=== PATIENT | male | born 1970 | race Caucasian/White ===

== ENCOUNTER 2018-06-11 12:30 | Emergency (ER) | payer BC, OTHER ==
[~2018-06-11] VITALS: Ht 180.3 cm; Wt 95.3 kg
--- NOTE | ~2018-06-11 | EKG ---
[address] [address] ELECTROCARDIOGRAM REPORT Name: YOEL CHILDRESS Room #: DEP Joie#: [id number] Admission: 06/11/18 Attend Phys: Discharge: 06/11/18 Date of : 68 Report #: [id number] THIS REPORT FOR: //name// [facility] ED Test Date: 2018-06-11 Test Time: 12:40:56 Pat Name: YOEL CHILDRESS Department: Room: Gender: [employer] Supervisor: JANIS : 1970 Requested By: Conchita Sierra Order Number: [id number] MD: Marek Brannon Measurements Intervals [place] Rate: 91 P: 48 [place]: 149 QRS: -9 QRSD: 102 T: 9 QT: 373 QTc: 459 Interpretive Statements Sinus rhythm No previous ECG available for comparison Electronically Signed On 06-12-2018 11:17:45 AVAYA ENGINEER by Marek Brannon [email or web address] <ELECTRONICALLY SIGNED> By: Marek Brannon MD 06/12/18 1117 1240 1240 Marek Brannon MD /AIXA
[2018-06-11 14:53] LABS: BASOPHILS 0.4 % (0.0-2.0); EOSINOPHILS 0.2 % (0.0-3.0); HEMATOCRIT 44.7 % (42.0-52.0); HEMOGLOBIN 15.5 gm/dL (14.0-18.0); LYMPHOCYTES 8.8 % (24.0-44.0); MCHC 34.6 g/dL (28.0-37.0); MCV 89.5 fL (80.0-100.0); MONOCYTES 4.2 % (1.0-8.0); PLATELET COUNT 205 thou/uL (150-400); POLYS 86.4 % (36.0-66.0); RDW 13.3 % (10.5-14.5); WBC 13.9 thou/uL (4.0-11.0)
[2018-06-11 15:08] LABS: CALCIUM 9.1 mg/dL (8.5-10.1); CREATININE 0.7 mg/dL (0.7-1.3); POTASSIUM 3.7 mmol/L (3.5-5.1)
[2018-06-11 15:14] LABS: ALBUMIN 4.2 g/dL (3.4-5.0); TOTAL BILIRUBIN 0.3 mg/dL (<0.1-1.0); TOTAL PROTEIN 7.3 g/dL (6.4-8.2)
[2018-06-11 15:50] LABS: URINE BILIRUBIN NEGATIVE (Negative); URINE BLOOD NEGATIVE (Negative); URINE CLARITY CLEAR; URINE COLOR YELLOW; URINE GLUCOSE-RANDOM* NEGATIVE (Negative); URINE KETONES NEGATIVE (Negative); URINE LEUKOCYTES NEGATIVE (Negative); URINE NITRITE NEGATIVE (Negative); URINE PROTEIN (DIPSTICK) NEGATIVE (Negative); URINE SPECIFIC GRAVITY >= 1.030 (1.005-1.035); URINE UROBILINOGEN 0.2 E.U./dl (0.2-1.0)
[2018-06-11] MEDS ORDERED: PRILOSEC 20 MG20 MG PO (17:17)
[2018-06-11 17:20] VITALS: BP 189/113
== END 2018-06-11 17:35 | disposition home or self-care (01) ==
LOC: ER 12:30
PROVIDERS: Physician Assistant
DX: K21.9 Gastro-esophageal reflux disease without esophagitis (principal)

== ENCOUNTER → 2019-09-13 | Outpatient (CLI) | payer BC, OTHER ==
[~2019-09-13] VITALS: Ht 180.3 cm; Wt 95.3 kg
[~2019-09-13] MED LIST: AMLODIPINE BESY10 MG PO; AVAPRO300 MG PO; GABAPENTIN 100100 MG PO; NABUMETONE 500500 M1 PO; PRILOSEC 20 MG20 MG PO; TRAMADOL 50 MG50 MG PO
--- NOTE | ~2019-09-13 | HPC ---
[facility] [address] [place] [address] PAIN MANAGEMENT CONSULTATION Name: YOEL CHILDRESS MICHELLE Room #: REG DANIS Villegas.#: [id number] Admission: 09/13/19 Attend Phys: Brennon Staples MD Discharge: Date of : 68 Report #: [id number] THIS REPORT FOR: cc: [facility] - No family physician/PCP [facility] - No family physician/PCP Brennon Staples MD ~ CC: [facility] physician/PCP Brennon Rubio MD DATE OF SERVICE: 09/13/2019 CHIEF COMPLAINT: Cervical pain with radiation into the left arm. 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 Beginning in June, began experiencing pain in his low back. There was fairly significant with radiation into the leg and numbness that responded to exercise and time and has almost gone away. Around the same time, he began experiencing symptoms consistent with cervical radiculopathy. He describes the pain as a 7/10 in the back of his neck and upper back that radiates down into the left arm following the C6-C7 distribution. Pain is rhythmic throbbing, sharp and stabbing. He took a Dosepak and got quite a bit of relief but the relief only lasted about a week. Pain is worse when he is driving, when he reaches ____ [place]. When he is sitting in a chair with his arm relaxed, pain drops fairly significantly. MEDICATIONS: Amlodipine, nabumetone, tramadol, Avapro. ALLERGIES: None. PAST MEDICAL HISTORY: Remarkable for hypertension. SOCIAL HISTORY: He is , but he is a single supervisor special education at [employer]. Denies use of tobacco, drinks alcohol frequently during the week, scoring his number of drinks per week at 10. REVIEW OF SYSTEMS: Positive for fatigue and weakness related to pain, otherwise negative. PHYSICAL EXAMINATION: GENERAL: Pleasant 49-year-old gentleman. Alert and oriented. VITAL SIGNS: Blood pressure 155/95, heart rate 99, respirations 14, O2 sat 100, pain intensity is 7/10. Moves independently and ambulates without antalgic features. HEENT: Normal. [facility] [address] [place] [address] PAIN MANAGEMENT CONSULTATION Name: YOEL CHILDRESS MICHELLE Room #: REG [facility].#: [id number] Admission: 09/13/19 Attend Phys: Brennon Staples MD Discharge: Date of : 68 Report #: [id number] NECK: Supple. Some tenderness in the left neck and this reproduces some radicular symptoms when the neck is rotated to the leftward lateral tilt. CHEST: Clear. CARDIAC: Rhythm regular. No murmur heard. NEUROLOGIC: The upper and lower extremities are normal with no evidence of hyperreflexia to suggest cord impingement. IMPRESSION: Cervical radiculopathy. RECOMMENDATIONS: Cervical epidural injection under fluoroscopic guidance. Because of the ongoing COVID virus concerns and the possibility of a large steroid injection may temporarily reduce natural adrenocorticoid release important in ____ an initial immune response, I have told him that we will wait 1 week and reevaluate the timing of the injection. Gabapentin 100 mg 1-3 tablets at bedtime were ordered to see if we can get some nocturnal pain relief since he is not sleeping well. Followup visit planned in 1 week for possible cervical epidural injection. By: 1350 1432 Brennon Staples MD /nt
[2019-09-13 10:45] VITALS: BP 155/95
--- NOTE | 2019-09-13 11:03 | NUR ---
Pain Clinic Assessment: 1. History of Osteoarthritis: BACK NECK History of Rheumatoid Arthritis: Not Applicable 2. Height: 5 ft. 11 in. 180.3 cm. Weight: 210.0 lb. oz. 95.256 kg. Patient's BMI: 29.3 3. Vital Signs: BP: 155/95 Pulse: 99 Resp: 14 Temp: 02 Sat: 100 ECG Mon: 4. Pain Intensity: 7 5. Fall Risk: Dizziness: N Needs help standing or walking: N Fallen in the last 3 months: N Fall risk comments: 6. Patient on Blood Thinner: None 7. History of Hypertension: Y 8. Opioid Therapy greater than 6 weeks: N Opiate Contract Signed: 9. Risk Assessment Tool Provided: LOW RISK 0/3 10. Functional Assessment Tool: 11. Recreational Drug Use: Never Drug Type: Tobacco Use: Never Smoker Tobacco Type: Amount or Packs/day: How Many Years: Alcohol Use: Yes Frequency: Weekly Quant: 10
== END ==
LOC: PAIN 06:49
DX: M54.12 Radiculopathy, cervical region (principal); I10 Essential (primary) hypertension; Z79.899 Other long term (current) drug therapy

== ENCOUNTER → 2019-09-20 | Outpatient (CLI) | payer BC, OTHER ==
[~2019-09-20] VITALS: Ht 180.3 cm; Wt 95.0 kg
[~2019-09-20] MED LIST changes: +OMEPRAZOLE 20 M20 M1 PO
[2019-09-20 09:41] VITALS: BP 143/96
--- NOTE | 2019-09-20 09:46 | NUR ---
Pain Clinic Assessment: 1. History of Osteoarthritis: BACK NECK History of Rheumatoid Arthritis: Not Applicable 2. Height: 5 ft. 11 in. 180.3 cm. Weight: 209.4 lb. oz. 94.983 kg. Patient's BMI: 29.2 3. Vital Signs: BP: 143/96 Pulse: 98 Resp: 16 Temp: 02 Sat: 98 ECG Mon: 4. Pain Intensity: 5-7 5. Fall Risk: Dizziness: N Needs help standing or walking: N Fallen in the last 3 months: N Fall risk comments: 6. Patient on Blood Thinner: None 7. History of Hypertension: Y 8. Opioid Therapy greater than 6 weeks: N Opiate Contract Signed: 9. Risk Assessment Tool Provided: LOW RISK 0/3 10. Functional Assessment Tool: 11. Recreational Drug Use: Never Drug Type: Tobacco Use: Never Smoker Tobacco Type: Amount or Packs/day: How Many Years: Alcohol Use: Yes Frequency: Quant:
--- NOTE | 2019-09-20 12:09 | HPC ---
[facility] [address] [place] [address] [place] [address] PAIN MANAGEMENT CONSULTATION Name: YOEL CHILDRESS MICHELLE Room #: REG DANIS VillegasMoisés#: [id number] Admission: 09/20/19 Attend Phys: Brennon Staples MD Discharge: Date of : 68 Report #: [id number] THIS REPORT FOR: cc: [facility] - No family physician/PCP [facility] - No family physician/PCP Brennon Staples MD ~ CC: [facility] physician/PCP Brennon Rubio MD DATE OF SERVICE: 09/20/2019 PROCEDURE NOTE: Cervical epidural steroid injection under fluoroscopic guidance. The patient returns to pain clinic today for cervical epidural injection. His pain remains unchanged from one week ago when I saw him initially in consultation. Pain varies between a 5 and an 8. He has weakness and numbness on the left consistent with cervical radiculopathy. I was able to review his MRI today showing the C6-C7 disk injury, which is creating his symptoms. We discussed the procedure in detail including risks and benefits and he is anxious to proceed. Chart was reviewed in detail. He is on no blood thinning medications. No allergies. DESCRIPTION OF PROCEDURE: After informed consent, he was taken to the fluoroscopic suite, placed prone, skin prepped with ChloraPrep. Skin anesthetized over the C7-T1 interspace. A 20-gauge Tuohy epidural needle advanced on the first attempt into the epidural space with loss of resistance. Omnipaque 1 mL was injected with excellent spread identified spreading cephalad and caudad. It was then followed by 3 mL of 0.5% lidocaine mixed with 80 mg of triamcinolone. He tolerated the procedure well. There were no complications. He was taken to recovery room for observation and discharged. We will see him back in the pain clinic on an as-needed basis or in 1 month for repeat injection if pain symptoms are not improved dramatically as we hope. No medications were ordered at this time. <ELECTRONICALLY SIGNED> By: Brennon Staples MD 09/20/19 1209 1017 1051 Brennon Staples MD /nt
== END | disposition home or self-care (01) ==
LOC: PAIN 06:48
DX: M54.12 Radiculopathy, cervical region (principal); G89.29 Other chronic pain; K21.9 Gastro-esophageal reflux disease without esophagitis

== ENCOUNTER → 2019-12-06 | Outpatient (CLI) | payer BC, OTHER ==
[~2019-12-06] VITALS: Ht 180.3 cm; Wt 96.7 kg
[2019-12-06 14:04] VITALS: BP 164/100
--- NOTE | 2019-12-06 14:07 | NUR ---
Pain Clinic Assessment: 1. History of Osteoarthritis: BACK NECK History of Rheumatoid Arthritis: Not Applicable 2. Height: 5 ft. 11 in. 180.3 cm. Weight: 213.2 lb. oz. 96.707 kg. Patient's BMI: 29.7 3. Vital Signs: BP: 164/100 Pulse: 91 Resp: 18 Temp: 02 Sat: 97 ECG Mon: 4. Pain Intensity: 5-6 5. Fall Risk: Dizziness: N Needs help standing or walking: N Fallen in the last 3 months: N Fall risk comments: 6. Patient on Blood Thinner: None 7. History of Hypertension: Y 8. Opioid Therapy greater than 6 weeks: N Opiate Contract Signed: 9. Risk Assessment Tool Provided: LOW RISK 0/3 10. Functional Assessment Tool: 35/70 11. Recreational Drug Use: Never Drug Type: Tobacco Use: Never Smoker Tobacco Type: Amount or Packs/day: How Many Years: Alcohol Use: Yes Frequency: Daily Quant: 1-2
--- NOTE | 2019-12-14 15:51 | HPC ---
[facility] [place] [address] PAIN MANAGEMENT CONSULTATION Name: YOEL CHILDRESS MICHELLE Room #: REG DANIS Villegas.#: [id number] Admission: 12/06/19 Attend Phys: Brennon Staples MD Discharge: Date of : 68 Report #: [id number] THIS REPORT FOR: cc: [facility] - No family physician/PCP [facility] - No family physician/PCP Brennon Staples MD ~ CC: [facility] physician/PCP Brennon Staples DATE OF SERVICE: 12/06/2019 Followup visit for cervical radiculopathy, left with numbness and tingling and weakness. The patient returns to pain clinic today with about 25% improvement following his first epidural injection. That was performed at C7-T1. We discussed repeating the injection higher today at C5-C6. I reviewed his MRI and there is evidence at C6-C7 and mild stenosis. I think it would go just above that. We might give him better relief. There is no significant stenosis at C5-C6. Medications were reviewed and reconciled. He has some tramadol on hand does not take it very helpful. We are hoping that he gets some relief from the epidural. He is on no blood thinners. He takes Avapro and amlodipine for hypertension. PHYSICAL EXAMINATION: GENERAL: Pleasant gentleman wearing a mask for the COVID restrictions. VITAL SIGNS: Blood pressure is 164/100, heart rate 91, respirations 18, O2 sat 97, BMI is 29.7. MUSCULOSKELETAL: Cervical range of motion is noted to be reduced in all planes with some discomfort. Pain radiates in the left arm with neck extension. Strength is normal in the upper extremities. Sensation is subjectively diminished in the left arm following the C6-C7 distribution. Reflexes are 2+ at biceps, triceps. Also 2+ at knee and ankle with no asymmetry. No hyperreflexia is noted. IMPRESSION: Cervical radiculopathy. RECOMMENDATIONS: Cervical epidural injection under fluoroscopic guidance. PROCEDURE: After informed consent, he was taken to the fluoroscopic suite, placed prone, skin prepped with ChloraPrep. Skin anesthetized over C5-C6. A 20-gauge Tuohy epidural needle advanced in the first attempt in the epidural space with loss of resistance. There was no blood or CSF aspirated. An excellent epidurogram was achieved. It was then followed by 3 mL of 0.5% lidocaine mixed with 80 mg of triamcinolone. He tolerated the procedure well and was observed for 45 minutes and discharged. [address] [address] PAIN MANAGEMENT CONSULTATION Name: MONROEYOEL MICHELLE Room #: REG CLI Joie#: [id number] Admission: 12/06/19 Attend Phys: Brennon Staples MD Discharge: Date of : 68 Report #: [id number] Followup visit planned in the pain clinic in the future as needed. No medications were ordered at today's visit. <ELECTRONICALLY SIGNED> By: Brennon Staples MD 12/14/19 1551 1522 1910 Brennon Staples MD /rocael
== END | disposition home or self-care (01) ==
LOC: PAIN 08:19
PROVIDERS: ATTEND Anesthesiology Pain Medicine
DX: M54.12 Radiculopathy, cervical region (principal); G89.29 Other chronic pain; I10 Essential (primary) hypertension; K21.9 Gastro-esophageal reflux disease without esophagitis; Z98.890 Other specified postprocedural states; Z79.899 Other long term (current) drug therapy

== ENCOUNTER → 2020-03-17 | Outpatient (CLI) | payer BC, OTHER ==
[~2020-03-17] VITALS: Ht 180.3 cm; Wt 100.4 kg
[~2020-03-17] MED LIST changes: +NORCO 10-325 T1 EACH PO
--- NOTE | ~2020-03-17 | HPC ---
[facility] [place] [address] PAIN MANAGEMENT CONSULTATION Name: YOEL CHILDRESS MICHELLE Room #: REG DANIS Villegas.#: [id number] Admission: 03/17/20 Attend Phys: Brennon Staples MD Discharge: Date of : 68 Report #: [id number] THIS REPORT FOR: cc: Kai Rubio MD,Kai Staples,Brennon Sierra MD ~ CC: Brennon Rubio DATE OF SERVICE: 03/17/2020 Followup visit for cervical radiculopathy. The patient has a good response to epidural injections with substantial pain relief lasting anywhere from a few days to several months. Pain is almost exclusively on the left and follows a C6-C7 distribution where he has MRI changes. There is minimal stenosis, but there is moderate left neural foraminal stenosis and a disk osteophyte complex posterior that as an asymmetrical component, affects more prominent right paracentral. He would like another epidural injection today that would be his third injection in the last 5 months. Discussed the possibility of surgery if pain does not improve over time, but currently he is making some progress with the injections. He denies other health issues, no hypertension, no diabetes, no problems with cardiopulmonary or renal or hepatic concerns. He remains active. 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 Denies use of tobacco, but drinks alcohol socially. PHYSICAL EXAMINATION: VITAL SIGNS: He is 5 feet 11 inches. BMI is 30.9. Blood pressure 160/102, heart rate 96, respirations 14, and O2 sat 100. CHEST: Clear. CARDIAC: Rhythm regular. MUSCULOSKELETAL: Examination of the spine reveals pain with neck extension, reproducing pain into the left arm. Pain follows a C6-C7 distribution. He has a positive Spurling's test. Deep tendon reflexes are normal 2+ in the upper and lower extremities. No evidence of hyperreflexia. IMPRESSION: Cervical radiculopathy. PROCEDURE: Cervical epidural under fluoroscopic guidance. PROCEDURE: After informed consent, he was taken to the fluoroscopic suite, placed prone, skin prepped with ChloraPrep. Skin anesthetized over the C6-C7 interspace and on the first attempt, a 20-gauge Tuohy epidural needle advanced [facility] [address] [place] [address] PAIN MANAGEMENT CONSULTATION Name: YOEL CHILDRESSN Room #: REG [facility].#: [id number] Admission: 03/17/20 Attend Phys: Brennon Staples MD Discharge: Date of : 68 Report #: [id number] in the midline. Good loss of resistance was obtained. An epidurogram was obtained as well. Medication spreading quickly to both sides into the lateral recess. It was then followed by 3 mL of 0.5% lidocaine mixed with 80 mg of triamcinolone. He tolerated the procedure well. There were no complications. I did order for him hydrocodone 10/325, #30 tablets to be taken for severe pain episodes. He can use these as necessary for intermittent pain episodes. I do not plan on putting him on regular daily opioids. We will follow up back in the pain clinic as needed. By: 1519 1828 Brennon Staples MD /nt
[2020-03-17 13:57] VITALS: BP 160/102
--- NOTE | 2020-03-17 14:13 | NUR ---
Pain Clinic Assessment: 1. History of Osteoarthritis: BACK NECK History of Rheumatoid Arthritis: Not Applicable 2. Height: 5 ft. 11 in. 180.3 cm. Weight: 221.4 lb. oz. 100.427 kg. Patient's BMI: 30.9 3. Vital Signs: BP: 160/102 Pulse: 96 Resp: 14 Temp: 02 Sat: 100 ECG Mon: 4. Pain Intensity: 5-6 5. Fall Risk: Dizziness: N Needs help standing or walking: N Fallen in the last 3 months: N Fall risk comments: 6. Patient on Blood Thinner: None 7. History of Hypertension: Y 8. Opioid Therapy greater than 6 weeks: N Opiate Contract Signed: 9. Risk Assessment Tool Provided: LOW RISK 0/3 10. Functional Assessment Tool: 35/70 11. Recreational Drug Use: Never Drug Type: Tobacco Use: Never Smoker Tobacco Type: Amount or Packs/day: How Many Years: Alcohol Use: Yes Frequency: Quant:
== END ==
LOC: PAIN 07:08
PROVIDERS: ATTEND Anesthesiology Pain Medicine
DX: M54.12 Radiculopathy, cervical region (principal); K21.9 Gastro-esophageal reflux disease without esophagitis; Z79.899 Other long term (current) drug therapy; Z88.8 Allergy status to other drugs, medicaments and biological substances; Z72.89 Other problems related to lifestyle